=== PATIENT | male | born 1990 | race Caucasian/White ===

== ENCOUNTER 2022-10-18 14:11 | Emergency (ER) | payer OTHER, SELFPAY ==
[2022-10-18 15:18] VITALS: BP 137/83; PULSE 93; RESP 14; TEMP 36.7; O2SAT 98; BMI 30.8
--- NOTE | 2022-10-18 16:23 | ED_ITS ---
HPI - General Adult General Chief complaint: Laceration/Wound Stated complaint: Lac L index finger Time Seen by Provider: 10/18/22 15:59 Source: patient Mode of arrival: ambulatory Limitations: no limitations History of Present Illness HPI narrative: 32-year-old male presents with a laceration to the left lateral index finger. He cut this on an appliance he was carrying, object was clean, last tetanus was less than 2 years ago. Noted bleeding which has now stopped. He was worried that the cut seems deeper than expected and he wonders if it needs stitches. He can flex and bend the finger without difficulty, mild pain. No history of coagulopathy. No history of complicated infections. No other areas of injury. No loss of sensation. Past medical history benign no major long-term health problems. No allergies no long-term medications, denies recent surgeries. Socially with no unusual exposures. ROS is negative for other generalized, musculoskeletal, skin or neurological changes Related Data Home Medications Medication Instructions Recorded Confirmed No Known Home Medications 10/18/22 10/18/22 Allergies Allergy/AdvReac Type Severity Reaction Status Date / Time No Known Drug Allergies Allergy Verified 10/18/22 15:22 PFSH PFS Social History Smoking Status: Never smoker How often do you have a drink containing alcohol: never AUDIT-C Alcohol total score: 0 Non-prescribed substance use: denies use Exam Const: Vital Signs, click to edit/add: Vital Signs - 24 hr 10/18/22 15:18 Temperature 98.1 F Pulse Rate [Right Pulse Oximeter] 93 Respiratory Rate 14 Blood Pressure [Ri ght Upper Arm] 137/83 Pulse Oximetry 98 Oxygen Delivery Me thod Room Air Documenting provider has reviewed patient's vital signs: yes Common normals: no apparent distress General appearance: cooperative HENMT: Common normals: normocephalic Head and scalp: normocephalic Resp: Common normals: normal respiratory effort Effort & inspection: able to speak in complete sentences Cardio: Other: Normal capillary refill and radial pulses. Extremity: Other: Normal flexion extension abduction adduction in all fingers on the left hand. Normal sensation. An 8 mm linear laceration at the D IP joint noted. Full- thickness depth but not to the muscle, no tendon, nerve or blood vessel involvement. Does gape when he flexes the finger, only slightly Neuro: Other: Normal strength and sensation in hand and fingers Psych: Common normals: mental status grossly normal Skin: Common normals: no rashes or lesions noted General skin exam: no rashes or lesions noted Course Vital Signs Vital signs: Initial Vital Signs Temperature 98.1 F 10/18/22 15:18 Temperature Source Temporal Artery Scan 10/18/22 15:18 Pulse Rate 93 10/18/22 15:18 Respiratory Rate 14 10/18/22 15:18 Blood Pressure 137/83 10/18/22 15:18 Blood Pressure Mean 101 10/18/22 15:18 Blood Pressure Position Sitting 10/18/22 15:18 Pulse Oximetry 98 10/18/22 15:18 Oxygen Delivery Method 10/18/22 15:18 Vital Signs Temperature 98.1 F 10/18/22 15:18 Pulse Rate 93 10/18/22 15:18 Respiratory Rate 14 10/18/22 15:18 Blood Pressure 137/83 10/18/22 15:18 Pulse Oximetry 98 10/18/22 15:18 Oxygen Delivery Method 10/18/22 15:18 Temperature 98.1 F 10/18/22 15:18 Pulse Rate 93 10/18/22 15:18 Respiratory Rate 14 10/18/22 15:18 Blood Pressure 137/83 10/18/22 15:18 Pulse Oximetry 98 10/18/22 15:18 Oxygen Delivery Method 10/18/22 15:18 Medical Decision Making MDM Narrative Medical decision making narrative: Very small laceration, no signs of nerve, tendon or blood vessel involvement. It does gape with flexion of the finger, offered closure. Discouraged stitches for such a small cut, covered with benzoin and large Steri-Strips with excellent closure. Confirm tetanus up-to-date. Reviewed signs and symptoms of infection, Tylenol ibuprofen as needed for pain. See discharge instructions Discharge Plan Discharge Clinical Impression: Laceration Patient Disposition: Home, Self-Care Condition: Improved Instructions: Finger Laceration (ED) Additional Instructions: There are no signs of blood vessel, nerve or tendon injury from your cut. This was closed with glue and special tape. The tape will stay on for a few days and then follow up on its own. It is okay to trim it if it starts to curl at the edges. This is very low risk for infection, you do not need to take any special care. Please avoid washing your hands for the next couple of hours while the glue completely dry. My nurse will check the status severe tetanus shot and if it is more than 10 years old, she will update this booster. It is okay to use Tylenol and/or ibuprofen as needed for pain. If it is significantly red, tender and draining purulent fluid, it may be infected, seek repeat medical opinion. As we discussed, there can be a hidden tendon injury. If you have difficulty straightening or bending the finger tip after period of time, seek an opinion from an orthopedist. Activity Level: No Restrictions Discharge Diet: Regular Prescriptions: No Action No Known Home Medications Follow Up/Referrals: Morris Xiao MD [Primary Care Provider] - Stand Alone Forms: [facility] Info Instructions
--- OUTSIDE RECORDS SUMMARY | 2022-10-18 16:26 | XMS_ITS | Clinical Summary ---
:1990 Author Organization [facility] [place] [address] Care Team Providers Name Role Phone Morris Xiao MD Primary Care Provider [phone] Allergies No known active allergies Medications No known medications Active Problems Not on file Social History Tobacco Use Types Packs/Day Years Used Date Smoking Tobacco: Never Assessed Sex Assigned at Date Recorded Not on file Last Filed Vital Signs Vital Sign Reading Time Taken Comments Blood Pressure 112/68 03/05/2021 10:16 AM CDT Pulse 94 03/05/2021 10:16 AM CDT Temperature - - Respiratory Rate - - Oxygen Saturation 95% 03/05/2021 10:16 AM CDT Inhaled Oxygen Concentration - - Weight 84.5 kg (186 lb 3.2 oz) 03/05/2021 10:16 AM CDT Height - - Body Mass Index - - Plan of Treatment Health Maintenance Due Date Last Done Comments COVID-19 vaccine series (#1) 1988 Tdap 02/27/1999 Depression screening for age 12+ 2000 HIV for age 15-65 02/27/2003 BMI (ht and wt on same day) for age 18+ 02/27/2006 Hepatitis C screening for age 18-79 02/27/2006 Tetanus booster 2008 Influenza for age 9-49 07/08/2022 Results Not on filefrom Last 3 Months Insurance Payer Benefit Plan / Subscriber ID Effective Dates Phone Addre ss Type Group MEDICA MEDICA CHOICE [id number] 2020-Present [address] [id number] [place] [address] Care Teams Factory Worker Relationship Specialty Start Date End Date Morris Xiao MD PCP - General Family Practice 02/12/211999 [place] [address]
== END 2022-10-18 16:28 | disposition home or self-care (01) ==
LOC: ED 16:24
PROVIDERS: Emergency Provider Family Medicine; PCP Family Medicine
DX: S61.211A Laceration without foreign body of left index finger without damage to nail, initial encounter (principal); W26.9XXA Contact with unspecified sharp object(s), initial encounter
CPT/HCPCS: 99282

== ENCOUNTER 2024-08-13 11:19 | Outpatient (CLI) | payer BC, SELFPAY ==
--- OUTSIDE RECORDS SUMMARY | 2024-08-13 11:20 | XMS_ITS | Clinical Summary ---
Author Organization [facility] Address [place], [place] [address] Care Team Providers Care Corporate Travel Manager Name Role Phone Morris Xiao MD Primary Care Provider + Allergies No known active allergies Medications No known medications Social History Tobacco Use Types Packs/Day Years Used Date Smoking Tobacco: Never Assessed Sex and Gender Information Value Date Recorded Sex Assigned at Not on file Gender Identity Not on file Sexual Orientation Not on file Last Filed Vital Signs [...] Health Maintenance Due Date Last Done Comments Tdap 02/27/1999 Depression screening for age 12+ 2000 HIV for age 15-65 02/27/2003 BMI (ht and wt on same day) for age 18+ 02/27/2006 Hepatitis C screening for ag e 18-79 02/27/2006 Tetanus booster 2008 Lipids for age 35-44 02/27/2023 COVID-19 vaccine series (2023- season) 2024 Influenza for age 9-49 07/08/2024 Pneumococcal series for age 6-64 Aged Out No longer eligible based on patient's age to complete this topic Care Teams Corporate Travel Manager Relationship Specialty Start Date End Date Morris Xiao MD [address] [place] [address] PCP - General Family Practice 02/12/21
--- NOTE | 2024-09-05 10:01 | W.PM.SLEEP ---
Sleep Study Details Details Interpreting Provider: Deangelo Date of Sleep Study: 08/13/24 Sleep Study Details: STUDY TYPE:? Home unattended ? BMI:? 30.3 ORDERING PROVIDER:? Paige INDICATION:? Concern about sleep apnea ? SLEEP SUMMARY:? 335.5 minutes monitored RESPIRATORY SUMMARY:? AHI 6.1, low oxygen 91. PERIODIC LIMB MOVEMENTS OF SLEEP:? Not recorded CARDIAC:? Range 44-95, mean 59.4 IMPRESSION:? Mild obstructive sleep apnea without significant desaturations. If patient is symptomatic treatment options could be considered. RECOMMENDATION: Treatment options include CPAP dental appliance and/or airway expansion surgery.
== END 2024-08-13 11:20 | disposition home or self-care (01) ==
LOC: SLEEP 11:19
PROVIDERS: PCP Family Medicine; Visit Provider Internal Medicine
DX: G47.33 Obstructive sleep apnea (adult) (pediatric) (principal)
CPT/HCPCS: 95806